=== PATIENT | female | born 1970 | race Hispanic/Latino ===

== ENCOUNTER 2020-05-05 09:11 | Emergency (ER) | payer SELFPAY ==
[~2020-05-05] VITALS: Ht 165.1 cm; Wt 81.2 kg
[2020-05-05] MEDS ORDERED: DIAZEPAM 5 MG TAB PO STA (09:20)
[2020-05-05] MEDS ORDERED: KETOROLAC TROMETHAMINE 60 MG/2 ML VIAL IM ONE (09:30)
[2020-05-05 10:13] VITALS: BP 142/90
== END 2020-05-05 10:16 | disposition home or self-care (01) ==
LOC: ER 10:09
DX: S16.1XXA Strain of muscle, fascia and tendon at neck level, initial encounter (principal); M62.838 Other muscle spasm; I10 Essential (primary) hypertension
CPT/HCPCS: 99282; J1885